=== PATIENT | female | born 1960 | race Caucasian/White ===

== ENCOUNTER 2017-12-24 19:07 | Observation (INO) | payer SELFPAY ==
[~2017-12-24 19:07] MED LIST: AMOX875T20 PO; Z.0.NO CURRENT MEDS
[2017-12-24 19:14] VITALS: BP 258/125; PULSE 99; RESP 18; TEMP 98.5; O2SAT 97
[2017-12-24 19:18] VITALS: BP 232/112; PULSE 100
[2017-12-24 19:30] VITALS: BP 226/118; PULSE 99; RESP 20; O2SAT 98
[2017-12-24] MEDS ORDERED: OXYMETAZOLINE HCL 0.05% 15 ML NASAL SPRAY NASAL ONE (19:45)
[2017-12-24] MEDS ORDERED: cloNIDine HCL 0.1 MG TAB PO ONE (19:45)
[2017-12-24 20:40] LABS: AUTOMATED NEUTROPHIL # 5.3 TH/MM3 (1.8-7.7); BASOPHIL % 0.6 % (0.0-2.0); EOSINOPHIL # 0.1 TH/MM3 (0-0.4); EOSINOPHIL % 0.9 % (0.0-4.0); HEMATOCRIT 40.5 % (35.0-46.0); LYMPH % 24.9 % (9.0-44.0); LYMPHOCYTE # 1.9 TH/MM3 (1.0-4.8); MEAN CELL VOLUME 101.2 FL (80.0-100.0); MEAN CORPUSCULAR HGB CONC 34.6 % (32.0-36.0); MEAN PLATELET VOLUME 8.4 FL (7.0-11.0); MONO % 4.7 % (0.0-8.0); MONOCYTE # 0.4 TH/MM3 (0-0.9); NEUT % 68.9 % (16.0-70.0); PLATELET COUNT 234 TH/MM3 (150-450); RED CELL DISTRIBUTION WIDTH 14.4 % (11.6-17.2); WHITE BLOOD COUNT 7.8 TH/MM3 (4.0-11.0)
[2017-12-24 20:50] LABS: BICARBONATE 25.1 MEQ/L (21.0-32.0); CALCIUM 9.5 MG/DL (8.5-10.1); CREATININE 1.6 MG/DL (0.50-1.00)
[2017-12-24 21:17] VITALS: BP 249/126; PULSE 86; RESP 18; O2SAT 98
[2017-12-24] MEDS ORDERED: hydrALAZINE HCL 20 MG/ML VIAL IV PUSH ONE (21:30)
--- NOTE | 2017-12-24 21:58 | PD ---
HPI Chief Complaint: Nosebleed Time Seen by Provider: 19:35 Travel History International Travel<30 days: No Contact w/Intl Traveler<30days: No Traveled to known affect area: No History of Present Illness HPI 57-year-old female that presents to the ED for evaluation of nosebleed to the right nostril. Per patient she has had 3 nosebleeds today. Per patient she has noted that her blood pressure is elevated as well. She denies any bleeding to the back of her nose. Per patient no swallowing of blood. Per patient she is able to put pressure on the bleeding stops. Bleeding does not last more than 20 minutes. No blood thinner use. No injury. Per patient has had nosebleeds before secondary to changes in climate and sinus infections. She states that she was not too concerned until she had 3 and she noticed that her blood pressure was elevated. She has any headache. She denies any abdominal pain or chest pain. No pain at all. She takes no medications for her blood pressure and was told in the urgent care that she had high blood pressure. She takes nothing for this. Her blood pressure is highly elevated here. PFSH Past Medical History Hypertension: Yes Influenza Vaccination: No Menopausal: Yes : 2 Para: 2 Social History Alcohol Use: Yes (OCCAS) Tobacco Use: Yes (1 PCK/DAY) Substance Use: No Allergies-Medications (Allergen,Severity, Reaction): Coded Allergies: No Known Allergies (Unverified Allergy, Unknown, 12/24/17) Reported Meds & Prescriptions Reported Meds & Active Scripts Active No Active Prescriptions or Reported Medications Review of Systems Except as stated in HPI: all other systems reviewed are Neg Physical Exam Narrative GENERAL: SKIN: Warm and dry. HEAD: Atraumatic. Normocephalic. EYES: Pupils equal and round. No scleral icterus. No injection or drainage. ENT: No nasal bleeding or discharge. Mucous membranes pink and moist. Tongue is midline. No uvula deviation. Nostrils are patent bilaterally. Some old blood noted on the right nostril. Nontender. No active bleeding at this time. NECK: Trachea midline. No JVD. CARDIOVASCULAR: Regular rate and rhythm. No murmurs, S3, S4. RESPIRATORY: No accessory muscle use. Clear to auscultation. Breath sounds equal bilaterally. GASTROINTESTINAL: Abdomen soft, non-tender, nondistended. Hepatic and splenic margins not palpable. MUSCULOSKELETAL: Extremities without clubbing, cyanosis, or edema. No obvious deformities. Full range of motion of the upper and lower extremities bilaterally. 2+ pulses bilaterally. NEUROLOGICAL: Awake and alert. No obvious cranial nerve deficits. Motor grossly within normal limits. Five out of 5 muscle strength in the arms and legs. Normal speech. PSYCHIATRIC: Appropriate mood and affect; insight and judgment normal. Data Data Last Documented VS Vital Signs Date Time Temp Pulse Resp B/P (MAP) Pulse Ox O2 Delivery O2 Flow Rate FiO2 12/24/17 22:22 74 18 204/100 (134) 97 Room Air 12/24/17 19:14 98.5 Orders Orders Oxymetazoline 0.05% Miko [place] (Afrin 0.0 (12/24/17 19:45) Clonidine (Catapres) (12/24/17 19:45) Complete Blood Count With Diff (12/24/17 19:44) Basic Metabolic Panel (Bmp) (12/24/17 19:44) Prothrombin Time / Inr (Pt) (12/24/17 19:44) Act Partial Throm Time (Ptt) (12/24/17 19:44) Hydralazine Inj (Apresoline Inj) (12/24/17 21:30) Labetalol Inj (Trandate Inj) (12/24/17 22:00) Electrocardiogram (12/24/17 ) Labs Laboratory Tests Test 12/24/17 20:00 White Blood Count 7.8 TH/MM3 Red Blood Count 4.00 MIL/MM3 Hemoglobin 14.0 GM/DL Hematocrit 40.5 % Mean Corpuscular Volume 101.2 FL Mean Corpuscular Hemoglobin 35.0 PG Mean Corpuscular Hemoglobin Concent 34.6 % Red Cell Distribution Width 14.4 % Platelet Count 234 TH/MM3 Mean Platelet Volume 8.4 FL Neutrophils (%) (Auto) 68.9 % Lymphocytes (%) (Auto) 24.9 % Monocytes (%) (Auto) 4.7 % Eosinophils (%) (Auto) 0.9 % Basophils (%) (Auto) 0.6 % Neutrophils # (Auto) 5.3 TH/MM3 Lymphocytes # (Auto) 1.9 TH/MM3 Monocytes # (Auto) 0.4 TH/MM3 Eosinophils # (Auto) 0.1 TH/MM3 Basophils # (Auto) 0.0 TH/MM3 CBC Comment DIFF FINAL Differential Comment Prothrombin Time 10.0 SEC Prothromb Time International Ratio 1.0 RATIO Activated Partial Thromboplast Time 26.4 SEC Blood Urea Nitrogen 18 MG/DL Creatinine 1.60 MG/DL Random Glucose 144 MG/DL Calcium Level 9.5 MG/DL Sodium Level 143 MEQ/L Potassium Level 3.2 MEQ/L Chloride Level 106 MEQ/L Carbon Dioxide Level 25.1 MEQ/L Anion Gap 12 MEQ/L Estimat Glomerular Filtration Rate 33 ML/MIN MDM Medical Decision Making Medical Screen Exam Complete: Yes Emergency Medical Condition: Yes Medical Record Reviewed: Yes Interpretation(s) CBC & BMP Diagram 12/24/17 20:00 Calcium Level 9.5 Differential Diagnosis Hypertensive urgency versus hypertension versus hypertensive emergency versus nosebleed versus anterior epistaxis Narrative Course 57-year-old female that presents to the ED for evaluation of nosebleed as well as hypertension. Patient was properly examined and was found to have signs and symptoms consistent with hypertension and nosebleed. Nosebleed completely controlled here. No sign of active bleeding at this time. I do recommend Afrin and blood pressure medication as well as some blood work as her blood pressure in the 200s systolic. She was given clonidine with minimal results. Her blood pressure actually went up to the 250s. She did had one more nosebleed that lasted a couple of minutes and then it went away. At this time I recommend IV medications to see we can bring down the blood pressure which likely will continue to cause the nosebleeds. Patient agrees with this. Case was discussed my attending Dr. Kwong who was made aware of blood pressure and agrees with plan. Case signed out to my attending pending dispo and plan. Scripts No Active Prescriptions or Reported Meds Shaheen Calixto Dec 24, 2017 21:58
[2017-12-24] MEDS ORDERED: LABETALOL HCL 100 MG/20 ML VIAL IV PUSH ONE (22:00)
[2017-12-24 22:22] VITALS: BP 204/100; PULSE 74; RESP 18; O2SAT 97
[2017-12-25] VITALS (12 sets, daily range): BP systolic 163–210; BP diastolic 77–98; PULSE 66–78; RESP 16–20; TEMP 97.8–98.6; O2SAT 71–99
--- NOTE | 2017-12-25 00:26 | PD ---
Physical Exam Date Seen by Provider: Dec 25, 2017 Time Seen by Provider: 00:22 Narrative GENERAL: Well-developed well-nourished female no acute distress or respiratory distress SKIN: Warm and dry. HEAD: Normocephalic. EYES: No scleral icterus. No injection or drainage. ENT: No active epistaxis. NECK: Supple, trachea midline. No JVD or lymphadenopathy. CARDIOVASCULAR: Regular rate and rhythm without murmurs, gallops, or rubs. RESPIRATORY: Breath sounds equal bilaterally. No accessory muscle use. GASTROINTESTINAL: Abdomen soft, non-tender, nondistended. MUSCULOSKELETAL: No cyanosis, or edema. Data Data Last Documented VS Vital Signs Date Time Temp Pulse Resp B/P (MAP) Pulse Ox O2 Delivery O2 Flow Rate FiO2 12/25/17 00:10 78 16 198/92 (127) 96 Room Air 12/24/17 19:14 98.5 Orders Orders Oxymetazoline 0.05% Miko [place] (Afrin 0.0 (12/24/17 19:45) Clonidine (Catapres) (12/24/17 19:45) Complete Blood Count With Diff (12/24/17 19:44) Basic Metabolic Panel (Bmp) (12/24/17 19:44) Prothrombin Time / Inr (Pt) (12/24/17 19:44) Act Partial Throm Time (Ptt) (12/24/17 19:44) Hydralazine Inj (Apresoline Inj) (12/24/17 21:30) Labetalol Inj (Trandate Inj) (12/24/17 22:00) Electrocardiogram (12/24/17 ) Labs Laboratory Tests Test 12/24/17 20:00 White Blood Count 7.8 TH/MM3 Red Blood Count 4.00 MIL/MM3 Hemoglobin 14.0 GM/DL Hematocrit 40.5 % Mean Corpuscular Volume 101.2 FL Mean Corpuscular Hemoglobin 35.0 PG Mean Corpuscular Hemoglobin Concent 34.6 % Red Cell Distribution Width 14.4 % Platelet Count 234 TH/MM3 Mean Platelet Volume 8.4 FL Neutrophils (%) (Auto) 68.9 % Lymphocytes (%) (Auto) 24.9 % Monocytes (%) (Auto) 4.7 % Eosinophils (%) (Auto) 0.9 % Basophils (%) (Auto) 0.6 % Neutrophils # (Auto) 5.3 TH/MM3 Lymphocytes # (Auto) 1.9 TH/MM3 Monocytes # (Auto) 0.4 TH/MM3 Eosinophils # (Auto) 0.1 TH/MM3 Basophils # (Auto) 0.0 TH/MM3 CBC Comment DIFF FINAL Differential Comment Prothrombin Time 10.0 SEC Prothromb Time International Ratio 1.0 RATIO Activated Partial Thromboplast Time 26.4 SEC Blood Urea Nitrogen 18 MG/DL Creatinine 1.60 MG/DL Random Glucose 144 MG/DL Calcium Level 9.5 MG/DL Sodium Level 143 MEQ/L Potassium Level 3.2 MEQ/L Chloride Level 106 MEQ/L Carbon Dioxide Level 25.1 MEQ/L Anion Gap 12 MEQ/L Estimat Glomerular Filtration Rate 33 ML/MIN [facility] Medical Record Reviewed: Yes Supervised Visit with FRITZ: Yes Interpretation(s) EKG normal sinus rhythm rate [address] elevation nonspecific QRS septally V1 V2 CBC & BMP Diagram 12/24/17 20:00 Calcium Level 9.5 Vital Signs Date Time Temp Pulse Resp B/P (MAP) Pulse Ox O2 Delivery O2 Flow Rate FiO2 12/25/17 00:10 78 16 198/92 (127) 96 Room Air 12/24/17 22:22 74 18 204/100 (134) 97 Room Air 12/24/17 21:17 86 18 249/126 (167) 98 Room Air 12/24/17 19:30 99 20 226/118 (154) 98 Room Air 12/24/17 19:18 100 232/112 (152) 12/24/17 19:14 98.5 99 18 258/125 (169) 97 Differential Diagnosis Epistaxis, hypertensive urgency hypertensive crisis Narrative Course Patient was presentation for epistaxis that has resolved with direct pressure noted to have markedly elevated blood pressure diagnosed with blood pressure elevation approximately 2 months ago at urgent care visit for sinus infection. Patient was not started on antihypertensive medication at that time. Patient administered here clonidine 0.1 mg was minimal effective blood pressure hydralazine 20 mg IV with minimal effective blood pressure and labetalol 5 mg IV Lab values are found to be in normal range EKG normal sinus rhythm rate [address] elevation nonspecific T-wave changes septally QS septally age indeterminate; no comparison EKG Diagnosis Primary Impression: Hypertensive urgency Additional Impression: Epistaxis Scripts No Active Prescriptions or Reported Meds Anna Kwong MD Dec 25, 2017 00:26
[2017-12-25] MEDS ORDERED: LABETALOL HCL 100 MG/20 ML VIAL IV PUSH ONE ×2 (00:30→01:30)
[2017-12-25] MEDS ORDERED: NITROGLYCERIN 2% OINT 1 GM PACKET TOPICAL ONE (00:30)
[2017-12-25] MEDS ORDERED: BISACODYL 10 MG SUPP RECTAL PRN (03:30)
[2017-12-25] MEDS ORDERED: ACETAMINOPHEN 325 MG TAB PO PRN (03:30)
[2017-12-25] MEDS ORDERED: NIFEdipine 30 MG SUSTAINED RELEASE TAB PO ONE ×2 (03:30→16:15)
[2017-12-25] MEDS ORDERED: SENNOSIDES 8.6 MG TAB PO PRN (03:30)
[2017-12-25] MEDS ORDERED: SODIUM CHLORIDE 0.9% FLUSH 10 ML FLUSH IV FLUSH PRN (03:30)
[2017-12-25] MEDS ORDERED: MORPHINE SULFATE 4 MG/ML INJ IV PRN (03:30)
[2017-12-25] MEDS ORDERED: ACETAMINOPHEN/HYDROcodone 325 MG/5 MG TAB PO PRN (03:30)
[2017-12-25] MEDS ORDERED: LACTULOSE SYRUP 20 GM/30 ML CUP PO PRN (03:30)
[2017-12-25] MEDS ORDERED: MAGNESIUM HYDROXIDE SUSP 30 ML CUP PO PRN (03:30)
[2017-12-25] MEDS ORDERED: METOPROLOL TARTRATE 50 MG TAB PO ONE (03:30)
[2017-12-25] MEDS ORDERED: METOCLOPRAMIDE HCL 10 MG/2 ML VIAL IV PUSH PRN (03:30)
--- NOTE | 2017-12-25 03:55 | HHI.HP ---
[facility] Primary Care Physician No Primary Care Physician Admission Diagnosis uncontrolled HTN; epistaxis Diagnoses: (1) Epistaxis Diagnosis: Principal (2) Uncontrolled hypertension Diagnosis: Principal (3) Renal insufficiency Diagnosis: Principal (4) Hyperglycemia Diagnosis: Principal Travel History International Travel<30 Days: No Contact w/Intl Traveler <30 Da: No Traveled to Known Affected Are: No History of Present Illness This is a 57-year-old female with a PMH of HTN who presented to ER with complaints of epistaxis and elevated blood pressure. Per patient she was told several years ago at an Urgent Care that she had high blood pressure but was not started on any medication at that time. Today, states she drove her scooter to the gas station and had acute onset of epistaxis from right nostril. No headache, dizziness, chest pain or nausea/vomiting. Not on ASA or anticoagulation. On arrival, BP 258/125, HR 99, O2 sat 97% on RA, Afebrile. CBC essentially unremarkable. Creatinine 1.60, no previous labs for comparison. BS 144. INR 1.0. S/p multiple doses of antihypertensive medications in the ER w/ some improvement, however BP remains 170-180's systolic. Epistaxis has resolved. Review of Systems Except as stated in HPI: all other systems reviewed are Neg ROS: 14 point review of systems otherwise negative. Past Family Social History Past Medical History PMH: HTN Past Surgical History PAST SURGICAL HISTORY: Left Wrist Surgery Allergies: Coded Allergies: No Known Allergies (Unverified Allergy, Unknown, 12/24/17) Family History PAST FAMILY HISTORY: Reviewed. No h/o DM or CAD Social History PAST SOCIAL HISTORY: Occasional alcohol. Smokes 1ppd. Negative for drugs. Physical Exam Vital Signs Vital Signs Date Time Temp Pulse Resp B/P (MAP) Pulse Ox O2 Delivery O2 Flow Rate FiO2 12/25/17 03:13 68 18 167/79 (108) 96 Room Air 12/25/17 03:01 71 18 170/81 (110) 97 Room Air 12/25/17 02:16 72 18 185/77 (113) 96 Room Air 12/25/17 01:21 70 18 210/95 (133) 96 Room Air 12/25/17 00:10 78 16 198/92 (127) 96 Room Air 12/24/17 22:22 74 18 204/100 (134) 97 Room Air 12/24/17 21:17 86 18 249/126 (167) 98 Room Air 12/24/17 19:30 99 20 226/118 (154) 98 Room Air 12/24/17 19:18 100 232/112 (152) 12/24/17 19:14 98.5 99 18 258/125 (169) 97 Physical Exam PE: GENERAL: Very pleasant middle-aged white female in no acute distress. HEENT: PERRLA, EOMI. No scleral icterus or conjunctival pallor. No lid lag or facial droop. Epistaxis resolved. CARDIOVASCULAR: Regular rate and rhythm. No obvious murmurs to auscultation. No chest tenderness to palpation. RESPIRATORY: No obvious rhonchi or wheezing. Clear to auscultation. Breath sounds equal bilaterally. GASTROINTESTINAL: Abdomen soft, non-tender, nondistended. BS normal. MUSCULOSKELETAL: Extremities without clubbing, cyanosis, or edema. No obvious deformities. NEUROLOGICAL: Awake, alert and oriented x4. No focal neurologic deficits. Moving both upper and lower extremities spontaneously. Laboratory Laboratory Tests Test 12/24/17 20:00 White Blood Count 7.8 Red Blood Count 4.00 Hemoglobin 14.0 Hematocrit 40.5 Mean Corpuscular Volume 101.2 Mean Corpuscular Hemoglobin 35.0 Mean Corpuscular Hemoglobin Concent 34.6 Red Cell Distribution Width 14.4 Platelet Count 234 Mean Platelet Volume 8.4 Neutrophils (%) (Auto) 68.9 Lymphocytes (%) (Auto) 24.9 Monocytes (%) (Auto) 4.7 Eosinophils (%) (Auto) 0.9 Basophils (%) (Auto) 0.6 Neutrophils # (Auto) 5.3 Lymphocytes # (Auto) 1.9 Monocytes # (Auto) 0.4 Eosinophils # (Auto) 0.1 Basophils # (Auto) 0.0 CBC Comment DIFF FINAL Differential Comment Prothrombin Time 10.0 Prothromb Time International Ratio 1.0 Activated Partial Thromboplast Time 26.4 Blood Urea Nitrogen 18 Creatinine 1.60 Random Glucose 144 Calcium Level 9.5 Sodium Level 143 Potassium Level 3.2 Chloride Level 106 Carbon Dioxide Level 25.1 Anion Gap 12 Estimat Glomerular Filtration Rate 33 Result Diagram: 12/24/17199912/24/171999 Caprini VTE Risk Assessment Onelrini VTE Risk Assessment: No/Low Risk (score <= 1) VTE Pharm Contraindication: Active bleeding Onelringordon Risk Assessment Model Point Value = 1 Point Value = 2 Point Value = 3 Point Value = 5 Age 41-60 Minor surgery BMI > 25 kg/m2 Swollen legs Varicose veins or History of unexplained or recurrent spontaneous Oral contraceptives or hormone replacement Sepsis (< 1 month) Serious lung disease, including pneumonia (< 1 month) Abnormal pulmonary function Acute myocardial infarction Congestive heart failure (< 1 month) History of inflammatory bowel disease Medical patient at bed rest Age 61-74 Arthroscopic surgery Major open surgery (> 45 min) Laparoscopic surgery (> 45 min) Malignancy Confined to bed (> 72 hours) Immobilizing plaster cast Central venous access Age >= 75 History of VTE Family history of VTE Factor V Leiden Prothrombin [id number] Lupus anticoagulant Anticardiolipin antibodies Elevated serum homocysteine Heparin-induced thrombocytopenia Other congenital or acquired thrombophilia Stroke (< 1 month) Elective arthroplasty Hip, pelvis, or leg fracture Acute spinal cord injury (< 1 month) Prophylaxis Regimen Total Risk Factor Score Risk Level Prophylaxis Regimen 0-1 Low Early ambulation 2 Moderate Order ONE of the following: *Sequential Compression Device (SCD) *Heparin 5000 units SQ BID 3-4 Higher Order ONE of the following medications: *Heparin 5000 units SQ TID *Enoxaparin/Lovenox 40 mg SQ daily (WT < 150 kg, CrCl > 30 mL/min) *Enoxaparin/Lovenox 30 mg SQ daily (WT < 150 kg, CrCl > 10-29 mL/min) *Enoxaparin/Lovenox 30 mg SQ BID (WT < 150 kg, CrCl > 30 mL/min) AND/OR *Sequential Compression Device (SCD) 5 or more Highest Order ONE of the following medications: *Heparin 5000 units SQ TID (Preferred with Epidurals) *Enoxaparin/Lovenox 40 mg SQ daily (WT < 150 kg, CrCl > 30 mL/min) *Enoxaparin/Lovenox 30 mg SQ daily (WT < 150 kg, CrCl > 10-29 mL/min) *Enoxaparin/Lovenox 30 mg SQ BID (WT < 150 kg, CrCl > 30 mL/min) AND *Sequential Compression Device (SCD) Assessment and Plan Problem List: (1) Epistaxis ICD Code: R04.0 - Epistaxis Status: Acute (2) Uncontrolled hypertension ICD Code: I10 - Essential (primary) hypertension (3) Hyperglycemia ICD Code: R73.9 - Hyperglycemia, unspecified (4) Renal insufficiency ICD Code: N28.9 - Disorder of kidney and ureter, unspecified Assessment and Plan A/P: 1. Epistaxis: likely secondary to significantly elevated BP on arrival, s/p Afrin in ER, epistaxis now resolved. Repeat Hgb/Hct. 2. HTN: Uncontrolled. Not on antihypertensive medications. BP 258/125, HR 99 on arrival, s/p Clonidine 0.1mg, Hydralazine 20mg IV and Labetalol x3 w/ improvement, BP now 170-180's, will start on antihypertensives, monitor BP. 3. Renal Insufficiency: Creatinine 1.60, no previous labs for comparison, likely due to long-standing uncontrolled HTN, check U/a to eval for UTI, repeat labs in am. 4. Hyperglycemia: BS 144, no previous h/o DM, check Hgb A1c, sliding scale as needed. 5. DVT Prophylaxis: SCD/Teds 6. Social work for d/c planning as needed. 7. Case discussed w/ ER physician at length, labs/records/imaging reviewed by me. Helen Nix MD Dec 25, 2017 03:55
[2017-12-25] MEDS: cloNIDine HCL 0.1 MG TAB PO PRN ×2 (06:24→20:46)
[2017-12-25 06:46] LABS: AUTOMATED NEUTROPHIL # 4.8 TH/MM3 (1.8-7.7); BASOPHIL % 0.3 % (0.0-2.0); EOSINOPHIL % 0.7 % (0.0-4.0); HEMATOCRIT 35.7 % (35.0-46.0); HEMOGLOBIN 12.2 GM/DL (11.6-15.3); LYMPH % 27.6 % (9.0-44.0); MEAN CELL VOLUME 102.1 FL (80.0-100.0); MEAN CORPUSCULAR HEMOGLOBIN 34.9 PG (27.0-34.0); MEAN CORPUSCULAR HGB CONC 34.2 % (32.0-36.0); MEAN PLATELET VOLUME 8.1 FL (7.0-11.0); MONO % 5.3 % (0.0-8.0); MONOCYTE # 0.4 TH/MM3 (0-0.9); NEUT % 66.1 % (16.0-70.0); PLATELET COUNT 202 TH/MM3 (150-450); RED CELL DISTRIBUTION WIDTH 14.2 % (11.6-17.2); WHITE BLOOD COUNT 7.3 TH/MM3 (4.0-11.0)
[2017-12-25 07:13] LABS: ALBUMIN 3.4 GM/DL (3.4-5.0); AST (GOT) 16 U/L (15-37); BICARBONATE 27.3 MEQ/L (21.0-32.0); BLOOD UREA NITROGEN 18 MG/DL (7-18); CALCIUM 8.9 MG/DL (8.5-10.1); CHLORIDE 104 MEQ/L (98-107); CREATININE 1.32 MG/DL (0.50-1.00); GLOMERULAR FILTRATION RATE 41 ML/MIN (>89); GLUCOSE,RANDOM 90 MG/DL (74-106); SODIUM (NA) 141 MEQ/L (136-145)
[2017-12-25 07:15] LABS: ALKALINE PHOSPHATASE 76 U/L (45-117); ALT (GPT) 21 U/L (10-53); TOTAL BILIRUBIN ADULT 0.4 MG/DL (0.2-1.0); TOTAL PROTEIN 6.8 GM/DL (6.4-8.2)
[2017-12-25] MEDS: DOCUSATE SODIUM 50 MG/SENNA 8.6 MG TAB PO SCH ×2 (09:00→20:47)
[2017-12-25] MEDS ORDERED: NIFEdipine 60 MG SUSTAINED RELEASE TAB PO SCH (09:00)
[2017-12-25] MEDS: SODIUM CHLORIDE 0.9% FLUSH 10 ML FLUSH IV FLUSH SCH ×2 (09:21→20:45)
--- NOTE | 2017-12-25 09:54 | HHI.PR ---
Subjective Remarks Follow-up for epistaxis, hypertensive urgency. Patient reports feeling better today. She denies any further epistaxis since yesterday. She denies any headache, lightheadedness, dizziness, chest pain, palpitations, shortness of breath. Blood pressure improving, however still systolic in the 160s. She has no other medical complaints at this time. Objective Vitals Vital Signs Date Time Temp Pulse Resp B/P (MAP) Pulse Ox O2 Delivery O2 Flow Rate FiO2 12/25/17 08:17 98.2 66 20 163/83 (109) 96 12/25/17 05:15 98.1 66 18 191/98 (129) 99 12/25/17 04:36 12/25/17 03:13 68 18 167/79 (108) 96 Room Air 12/25/17 03:01 71 18 170/81 (110) 97 Room Air 12/25/17 02:16 72 18 185/77 (113) 96 Room Air 12/25/17 01:21 70 18 210/95 (133) 96 Room Air 12/25/17 00:10 78 16 198/92 (127) 96 Room Air 12/24/17 22:22 74 18 204/100 (134) 97 Room Air 12/24/17 21:17 86 18 249/126 (167) 98 Room Air 12/24/17 19:30 99 20 226/118 (154) 98 Room Air 12/24/17 19:18 100 232/112 (152) 12/24/17 19:14 98.5 99 18 258/125 (169) 97 Result Diagram: 12/25/17 0550 12/25/17 0550 Objective Remarks GENERAL: Well-nourished, well-developed pleasant overweight middle-aged female patient in [facility]. SKIN: Warm and dry. No rash. HEENT: Normocephalic. Atraumatic. Pupils equal and round. Mucous membranes pink and moist. CARDIOVASCULAR: Regular rate and rhythm. No murmur appreciated. RESPIRATORY: No accessory muscle use. Clear to auscultation. Breath sounds equal bilaterally. GASTROINTESTINAL: Abdomen soft, non-tender, nondistended. Normoactive bowel sounds x4. MUSCULOSKELETAL: No obvious deformities. Extremities without clubbing, cyanosis , or edema. NEUROLOGICAL: Awake and alert. No obvious cranial nerve deficits. Motor grossly within normal limits. Moving all extremities spontaneously. Normal speech. PSYCHIATRIC: Appropriate mood and affect; insight and judgment normal. Medications and IVs Current Medications Medications (Trade) Dose Ordered Sig/Ya Route Start Time Stop Time Status Last Admin (NS Flush) 2 ml UNSCH PRN IV FLUSH 12/25/17 03:30 (NS Flush) 2 ml BID IV FLUSH 12/25/17 09:00 12/25/17 09:21 (Reglan Inj) 5 mg Q6H PRN IV PUSH 12/25/17 03:30 (Tylenol) 650 mg Q6H PRN PO 12/25/17 03:30 (Hardy 5-325 Mg) 1 tab Q4H PRN PO 12/25/17 03:30 (Morphine Inj) 2 mg Q3H PRN IV 12/25/17 03:30 (Priti-Colace) 1 tab BID PO 12/25/17 09:00 (Milk Of Magnesia Liq) 30 ml Q12H PRN PO 12/25/17 03:30 (Senokot) 17.2 mg Q12H PRN PO 12/25/17 03:30 (Dulcolax Supp) 10 mg DAILY PRN RECTAL 12/25/17 03:30 (Lactulose Liq) 30 ml DAILY PRN PO 12/25/17 03:30 (Catapres) 0.1 mg Q6H PRN PO 12/25/17 06:15 12/25/17 06:24 (Procardia Xl) 60 mg DAILY PO 12/25/17 09:00 12/25/17 09:21 A/P Problem List: (1) Epistaxis ICD Code: R04.0 - Epistaxis Status: Acute (2) Uncontrolled hypertension ICD Code: I10 - Essential (primary) hypertension (3) Hyperglycemia ICD Code: R73.9 - Hyperglycemia, unspecified (4) Renal insufficiency ICD Code: N28.9 - Disorder of kidney and ureter, unspecified Assessment and Plan 57-year-old female with past medical history of hypertension not on antihypertensives, presents with epistaxis and hypertensive urgency, BP 258/125 in the ED. Hypertensive urgency: BP 258/125 in the ER. Status post multiple doses of antihypertensives including clonidine, IV labetalol, nitroglycerin, metoprolol, nifedipine, with mild improvement. -Start on Procardia XL 60 mg daily -Continue clonidine as needed -Monitor BP, adjust antihypertensives as needed -Case management consulted to assist with obtaining medications prior to discharge Epistaxis: Secondary to above. -Status post Afrin in the ED with resolution of epistaxis -Controlled BP as above -Currently resolved LUIS ALBERTO: Creatinine 1.6, no previous labs for comparison, likely prerenal secondary to dehydration versus hypertensive nephropathy -Encouraged oral fluid hydration -Avoid nephrotoxins -Repeat BMP with some improvement, creatinine 1.3 -Continue to monitor renal function Hyperglycemia: Glucose 144 upon arrival -hemoglobin A1c 5.6, no diabetes DVT prophylaxis: Teds/SCDs, avoid chemoprophylaxis with epistaxis as above Discharge Planning Discharge pending improvement of blood pressure. Likely discharge tomorrow 12/26. Oriana Rodriguez PA-C Dec 25, 2017 9:54 am
[2017-12-25 10:22] LABS: HEMOGLOBIN A1C 5.6 % (4.3-6.0)
--- NOTE | 2017-12-25 12:35 | HHI.DCPOC ---
Discharge Care Plan Diagnosis: (1) Uncontrolled hypertension Goals to Promote Your Health * To prevent worsening of your condition and complications * To maintain your health at the optimal level Directions to Meet Your Goals Take your medications as prescribed Follow your dietary instruction Follow activity as directed Keep your appointments as scheduled Take your immunizations and boosters as scheduled If your symptoms worsen call your PCP, if no PCP go to Urgent Care Center or Emergency Room Smoking is Dangerous to Your Health. Avoid second hand smoke Call the 24-hour hour crisis hotline for domestic abuse at Oriana Rodriguez PA-C Dec 25, 2017 12:35 pm
--- NOTE | 2017-12-25 15:57 | EKG ---
Date Performed: 12/25/2017 Time Performed: 00:16:24 PTAGE: 57 years EKG: Sinus rhythm NONSPECIFIC T-WAVE ABNORMALITY BORDERLINE ECG NO PREVIOUS TRACING DOCTOR: Camilo Johnson Interpretating Date/Time 12/25/2017 15:55:27
[2017-12-26] VITALS (19 sets, daily range): BP systolic 162–216; BP diastolic 77–99; PULSE 61–84; RESP 14–20; TEMP 97.1–98.4; O2SAT 94–97
[2017-12-26] MEDS ORDERED: hydrALAZINE HCL 50 MG TAB PO ONE (01:45)
[2017-12-26] MEDS: cloNIDine HCL 0.1 MG TAB PO PRN (03:59)
[2017-12-26] MEDS ORDERED: LABETALOL HCL 100 MG/20 ML VIAL IV PUSH ONE (06:00)
--- NOTE | 2017-12-26 08:39 | HHI.PR ---
Subjective Remarks Follow-up for epistaxis, hypertensive urgency. Patient's blood pressure increased overnight to 216/99, status post p.o. hydralazine and IV labetalol, improved to 170s/80s. Patient admits that she has been feeling anxious and stressed out due to events going on at home. She otherwise denies any medical complaints including no headache, visual changes, lightheadedness, dizziness, chest pain, palpitations, shortness of breath. Objective Vitals Vital Signs Date Time Temp Pulse Resp B/P (MAP) Pulse Ox O2 Delivery O2 Flow Rate FiO2 12/26/17 07:06 97.6 67 20 179/85 (116) 95 12/26/17 06:24 65 16 185/88 (120) 94 12/26/17 03:52 97.7 73 16 216/99 (138) 97 12/26/17 03:50 84 12/26/17 00:24 98.0 61 14 215/95 (135) 97 12/26/17 00:00 62 12/25/17 20:00 69 12/25/17 19:45 97.8 71 17 208/92 (130) 97 12/25/17 15:00 72 12/25/17 14:57 98.6 70 20 169/82 (111) 98 Result Diagram: 12/25/17 0550 12/25/17 0550 Objective Remarks GENERAL: Well-nourished, well-developed pleasant overweight middle-aged female patient in [facility]. SKIN: Warm and dry. No rash. HEENT: Normocephalic. Atraumatic. Pupils equal and round. Mucous membranes pink and moist. CARDIOVASCULAR: Regular rate and rhythm. No murmur appreciated. RESPIRATORY: No accessory muscle use. Clear to auscultation. Breath sounds equal bilaterally. GASTROINTESTINAL: Abdomen soft, non-tender, nondistended. Normoactive bowel sounds x4. MUSCULOSKELETAL: No obvious deformities. Extremities without clubbing, cyanosis , or edema. NEUROLOGICAL: Awake and alert. No obvious cranial nerve deficits. Motor grossly within normal limits. Moving all extremities spontaneously. Normal speech. PSYCHIATRIC: Appropriate mood and affect; insight and judgment normal. Medications and IVs Current Medications Medications (Trade) Dose Ordered Sig/Ya Route Start Time Stop Time Status Last Admin (NS Flush) 2 ml UNSCH PRN IV FLUSH 12/25/17 03:30 (NS Flush) 2 ml BID IV FLUSH 12/25/17 09:00 12/25/17 20:45 (Reglan Inj) 5 mg Q6H PRN IV PUSH 12/25/17 03:30 (Tylenol) 650 mg Q6H PRN PO 12/25/17 03:30 ([place] 5-325 Mg) 1 tab Q4H PRN PO 12/25/17 03:30 (Morphine Inj) 2 mg Q3H PRN IV 12/25/17 03:30 (Priti-Colace) 1 tab BID PO 12/25/17 09:00 (Milk Of Magnesia Liq) 30 ml Q12H PRN PO 12/25/17 03:30 (Senokot) 17.2 mg Q12H PRN PO 12/25/17 03:30 (Dulcolax Supp) 10 mg DAILY PRN RECTAL 12/25/17 03:30 (Lactulose Liq) 30 ml DAILY PRN PO 12/25/17 03:30 (Catapres) 0.1 mg Q6H PRN PO 12/25/17 06:15 12/26/17 03:59 (Procardia Xl) 90 mg DAILY PO 12/26/17 09:00 A/P Problem List: (1) Epistaxis ICD Code: R04.0 - Epistaxis Status: Acute (2) Uncontrolled hypertension ICD Code: I10 - Essential (primary) hypertension (3) Hyperglycemia ICD Code: R73.9 - Hyperglycemia, unspecified (4) Renal insufficiency ICD Code: N28.9 - Disorder of kidney and ureter, unspecified Assessment and Plan 57-year-old female with past medical history of hypertension not on antihypertensives, presents with epistaxis and hypertensive urgency, BP 258/125 in the ED. Hypertensive urgency: BP 258/125 in the ER. Status post multiple doses of antihypertensives including clonidine, IV labetalol, nitroglycerin, metoprolol, nifedipine, with mild improvement. -Start on Procardia XL 90 mg daily -Continue clonidine as needed -Monitor BP, adjust antihypertensives as needed -Patient likely needs dual therapy, however difficulty initiating SHANNAN/ARB/ HCTZ with renal function, and difficulty initiating beta-khris due to borderline bradycardia -Await BMP today, if renal function improves, plan to start SHANNAN -Case management consulted to assist with obtaining medications prior to discharge Epistaxis: Secondary to above. -Status post Afrin in the ED with resolution of epistaxis -Controlled BP as above -Currently resolved LUIS ALBERTO: Creatinine 1.6, no previous labs for comparison, likely prerenal secondary to dehydration versus hypertensive nephropathy -Encouraged oral fluid hydration -Avoid nephrotoxins -Repeat BMP with some improvement, creatinine 1.3 -Continue to monitor renal function Hyperglycemia: Glucose 144 upon arrival -hemoglobin A1c 5.6, no diabetes DVT prophylaxis: Teds/SCDs, avoid chemoprophylaxis with epistaxis as above Discharge Planning Discharge pending repeat labs and improvement of blood pressure. Case management consulted to assist with obtaining prescriptions prior to discharge. Oriana Rodriguez PA-C Dec 26, 2017 8:39 am
[2017-12-26] MEDS: DOCUSATE SODIUM 50 MG/SENNA 8.6 MG TAB PO SCH ×2 (09:00→20:21)
[2017-12-26] MEDS: SODIUM CHLORIDE 0.9% FLUSH 10 ML FLUSH IV FLUSH SCH ×2 (09:00→20:21)
[2017-12-26] MEDS: NIFEdipine 90 MG SUSTAINED RELEASE TAB PO SCH (09:28)
[2017-12-26 11:29] LABS: BICARBONATE 24.5 MEQ/L (21.0-32.0); CALCIUM 9.6 MG/DL (8.5-10.1); CREATININE 1.06 MG/DL (0.50-1.00)
[2017-12-26] MEDS ORDERED: LISINOPRIL 10 MG TAB PO ONE (13:30)
[2017-12-26] MEDS: LISINOPRIL 10 MG TAB PO SCH (20:21)
[2017-12-27] VITALS (12 sets, daily range): BP systolic 161–201; BP diastolic 74–109; PULSE 62–78; RESP 16–18; TEMP 97.9–98.9; O2SAT 93–98
[2017-12-27] MEDS: LISINOPRIL 10 MG TAB PO SCH ×2 (08:23→21:06)
[2017-12-27] MEDS: NIFEdipine 90 MG SUSTAINED RELEASE TAB PO SCH (08:24)
[2017-12-27 08:49] LABS: BICARBONATE 27.3 MEQ/L (21.0-32.0); CALCIUM 9.5 MG/DL (8.5-10.1); CREATININE 1.16 MG/DL (0.50-1.00)
[2017-12-27] MEDS: SODIUM CHLORIDE 0.9% FLUSH 10 ML FLUSH IV FLUSH SCH ×2 (09:00→21:05)
[2017-12-27] MEDS: DOCUSATE SODIUM 50 MG/SENNA 8.6 MG TAB PO SCH ×2 (09:00→21:00)
[2017-12-27] MEDS: cloNIDine HCL 0.1 MG TAB PO PRN ×2 (12:30→18:41)
--- NOTE | 2017-12-27 16:33 | HHI.PR ---
Subjective Remarks Follow-up hypertension. Patient denies headache, vision changes, chest pain, dyspnea. No further episodes of epistaxis reported. Per nursing, blood pressure has remained in the 200s systolic this afternoon. A larger blood pressure cuff was obtained and most recent check had systolic of 164. Objective Vitals Vital Signs Date Time Temp Pulse Resp B/P (MAP) Pulse Ox O2 Delivery O2 Flow Rate FiO2 12/27/17 15:00 162/74 (103) 12/27/17 12:33 78 12/27/17 12:02 98.9 73 18 183/84 (117) 93 12/27/17 07:52 97.9 64 18 179/85 (116) 95 12/27/17 03:28 97.9 65 16 161/76 (104) 94 12/27/17 00:00 66 12/26/17 23:24 97.9 68 16 169/77 (107) 94 12/26/17 20:29 97.9 68 16 195/93 (127) 96 12/26/17 20:00 66 12/26/17 19:20 162/81 (108) 12/26/17 18:15 65 181/82 (115) 95 12/26/17 17:03 67 18 182/90 (120) 97 I/O 12/26/17 12/26/17 12/26/17 12/27/17 12/27/17 12/27/17 07:00 15:00 23:00 07:00 15:00 23:00 Intake Total 720 ml 1000 ml Balance 720 ml 1000 ml Intake Oral 720 ml 1000 ml # Voids 3 2 8 # Bowel Movements 0 Result Diagram: 12/25/17 0550 12/27/17 0815 Objective Remarks General: Obese female in no acute distress. Heart: Regular rate and rhythm. No murmur. Lungs: Clear to auscultation bilaterally. No wheezes, rales, or rhonchi. Breathing is nonlabored. Abdomen: Soft, nontender, nondistended. Extremities: No lower extremity edema. Psych: Alert and oriented. Neuro: Normal speech. No focal deficits noted. Procedures None Urinary Catheter: No Vascular Central Line Catheter: No A/P Problem List: (1) Epistaxis ICD Code: R04.0 - Epistaxis Status: Acute (2) Uncontrolled hypertension ICD Code: I10 - Essential (primary) hypertension (3) Hyperglycemia ICD Code: R73.9 - Hyperglycemia, unspecified (4) Renal insufficiency ICD Code: N28.9 - Disorder of kidney and ureter, unspecified Assessment and Plan 1. Hypertensive urgency: Patient had only mild improvement in her blood pressure with clonidine, IV labetalol, nitroglycerin, metoprolol, and nifedipine in the ER. Continue Procardia XL 90 mg daily, lisinopril 10 mg twice daily. Continue clonidine as needed. 2. Epistaxis: Secondary to above. Status post Afrin in the ER with resolution of epistaxis. No further episodes. 3. Acute kidney injury: Creatinine has improved. Encourage oral fluid hydration. Monitor labs. Likely prerenal secondary to dehydration versus secondary to hypertensive nephropathy. 4. Hyperglycemia: Hemoglobin A1c 5.6. 5. DVT prophylaxis: HAO Narayanan. Avoid chemical prophylaxis secondary to epistaxis. Discharge Planning Discharge home soon pending improved blood pressure control. Gino Castro MD Dec 27, 2017 16:33
[2017-12-28] VITALS (12 sets, daily range): BP systolic 166–206; BP diastolic 74–93; PULSE 61–82; RESP 16–18; TEMP 97.9–98.9; O2SAT 93–99
[2017-12-28] MEDS: cloNIDine HCL 0.1 MG TAB PO PRN (05:11)
[2017-12-28 05:59] LABS: AUTOMATED NEUTROPHIL # 7.4 TH/MM3 (1.8-7.7); BASOPHIL % 0.2 % (0.0-2.0); EOSINOPHIL # 0.1 TH/MM3 (0-0.4); EOSINOPHIL % 0.8 % (0.0-4.0); HEMATOCRIT 37.2 % (35.0-46.0); HEMOGLOBIN 12.6 GM/DL (11.6-15.3); LYMPH % 15.2 % (9.0-44.0); LYMPHOCYTE # 1.5 TH/MM3 (1.0-4.8); MEAN CELL VOLUME 102.4 FL (80.0-100.0); MEAN CORPUSCULAR HEMOGLOBIN 34.7 PG (27.0-34.0); MEAN CORPUSCULAR HGB CONC 33.8 % (32.0-36.0); MEAN PLATELET VOLUME 8.2 FL (7.0-11.0); MONOCYTE # 0.7 TH/MM3 (0-0.9); NEUT % 76.8 % (16.0-70.0); PLATELET COUNT 202 TH/MM3 (150-450); RED BLOOD COUNT 3.64 MIL/MM3 (4.00-5.30); RED CELL DISTRIBUTION WIDTH 14.2 % (11.6-17.2); WHITE BLOOD COUNT 9.6 TH/MM3 (4.0-11.0)
[2017-12-28 06:26] LABS: CALCIUM 9.6 MG/DL (8.5-10.1); CREATININE 1.21 MG/DL (0.50-1.00)
[2017-12-28] MEDS: DOCUSATE SODIUM 50 MG/SENNA 8.6 MG TAB PO SCH ×2 (09:00→21:00)
[2017-12-28] MEDS: hydrALAZINE HCL 25 MG TAB PO SCH ×2 (09:02→21:45)
[2017-12-28] MEDS: NIFEdipine 90 MG SUSTAINED RELEASE TAB PO SCH (09:02)
[2017-12-28] MEDS: SODIUM CHLORIDE 0.9% FLUSH 10 ML FLUSH IV FLUSH SCH ×2 (09:02→21:46)
[2017-12-28] MEDS: LISINOPRIL 10 MG TAB PO SCH ×2 (09:02→21:45)
--- NOTE | 2017-12-28 10:28 | HHI.PR ---
Subjective Remarks Follow-up hypertension. Patient states that she feels the same as yesterday. Only complaint is mild lower abdominal cramping. She denies any vaginal bleeding. Denies nausea or vomiting. No chest pain, dyspnea. Objective Vitals Vital Signs Date Time Temp Pulse Resp B/P (MAP) Pulse Ox O2 Delivery O2 Flow Rate FiO2 12/28/17 08:59 172/84 (113) Automatic Cuff 12/28/17 08:10 77 18 206/93 (130) 99 12/28/17 08:07 72 12/28/17 04:03 97.9 74 16 185/85 (118) 94 12/28/17 04:00 61 12/28/17 00:00 63 12/27/17 23:24 98.0 64 16 170/78 (108) 95 12/27/17 20:18 98.7 67 16 166/78 (107) 97 12/27/17 20:00 69 12/27/17 18:39 67 18 199/109 (139) 95 12/27/17 17:30 98.9 66 18 201/95 (130) 98 12/27/17 16:00 62 12/27/17 15:00 162/74 (103) 12/27/17 12:33 78 12/27/17 12:02 98.9 73 18 183/84 (117) 93 I/O 12/27/17 12/27/17 12/27/17 12/28/17 12/28/17 12/28/17 07:00 15:00 23:00 07:00 15:00 23:00 Intake Total 1000 ml 1100 ml Balance 1000 ml 1100 ml Intake Oral 1000 ml 1100 ml # Voids 8 2 Result Diagram: 12/28/17 0532 12/28/17 0532 Objective Remarks General: Obese female in no acute distress. Heart: Regular rate and rhythm. No murmur. Lungs: Clear to auscultation bilaterally. No wheezes, rales, or rhonchi. Breathing is nonlabored. Abdomen: Soft, nontender, nondistended. Extremities: No lower extremity edema. Psych: Alert and oriented. Neuro: Normal speech. No focal deficits noted. Procedures None Urinary Catheter: No Vascular Central Line Catheter: No A/P Problem List: (1) Epistaxis ICD Code: R04.0 - Epistaxis Status: Acute (2) Uncontrolled hypertension ICD Code: I10 - Essential (primary) hypertension (3) Hyperglycemia ICD Code: R73.9 - Hyperglycemia, unspecified (4) Renal insufficiency ICD Code: N28.9 - Disorder of kidney and ureter, unspecified Assessment and Plan 1. Hypertensive urgency: Patient had only mild improvement in her blood pressure with clonidine, IV labetalol, nitroglycerin, metoprolol, and nifedipine in the ER. Continue Procardia XL 90 mg daily, lisinopril 10 mg twice daily. Continue clonidine as needed. Blood pressure has remained elevated. Add hydralazine. 2. Epistaxis: Secondary to above. Status post Afrin in the ER with resolution of epistaxis. No further episodes. 3. Acute kidney injury: Creatinine has improved. Encourage oral fluid hydration. Monitor labs. Likely prerenal secondary to dehydration versus secondary to hypertensive nephropathy. 4. Hyperglycemia: Hemoglobin A1c 5.6. 5. DVT prophylaxis: HAO Narayanan. Avoid chemical prophylaxis secondary to epistaxis. Discharge Planning Discharge home when blood pressure control is improved. Gino Castro MD Dec 28, 2017 10:28
[2017-12-29] VITALS: PULSE 72
[2017-12-29 04:00] VITALS: PULSE 65
[2017-12-29 04:06] VITALS: BP 147/68; PULSE 76; RESP 16; TEMP 98; O2SAT 94
[2017-12-29 07:23] VITALS: PULSE 70
[2017-12-29] MEDS ORDERED: LISI10TA3 PO (08:59)
[2017-12-29] MEDS ORDERED: HYDR-3799 PO (08:59)
[2017-12-29] MEDS ORDERED: NIFE90TA2 PO (08:59)
[2017-12-29] MEDS: DOCUSATE SODIUM 50 MG/SENNA 8.6 MG TAB PO SCH (09:00)
--- NOTE | 2017-12-29 09:01 | HHI.DS ---
Discharge Summary Admission Date Dec 25, 2017 at 03:18 Discharge Date: Dec 29, 2017 Admitting Diagnosis uncontrolled HTN; epistaxis (1) Epistaxis ICD Code: R04.0 - Epistaxis Status: Acute (2) Uncontrolled hypertension ICD Code: I10 - Essential (primary) hypertension (3) Hyperglycemia ICD Code: R73.9 - Hyperglycemia, unspecified (4) Renal insufficiency ICD Code: N28.9 - Disorder of kidney and ureter, unspecified Procedures None Brief History - From Admission This is a 57-year-old female with a PMH of HTN who presented to ER with complaints of epistaxis and elevated blood pressure. Per patient she was told several years ago at an Urgent Care that she had high blood pressure but was not started on any medication at that time. Today, states she drove her scooter to the gas station and had acute onset of epistaxis from right nostril. No headache, dizziness, chest pain or nausea/vomiting. Not on ASA or anticoagulation. On arrival, BP 258/125, HR 99, O2 sat 97% on RA, Afebrile. CBC essentially unremarkable. Creatinine 1.60, no previous labs for comparison. BS 144. INR 1.0. S/p multiple doses of antihypertensive medications in the ER w/ some improvement, however BP remains 170-180's systolic. Epistaxis has resolved. CBC/BMP: 12/28/17 0532 12/28/17 0532 Significant Findings Laboratory Tests Test 12/26/17 09:55 12/27/17 08:15 12/28/17 05:32 Creatinine 1.06 MG/DL (0.50-1.00) 1.16 MG/DL (0.50-1.00) 1.21 MG/DL (0.50-1.00) Estimat Glomerular Filtration Rate 53 ML/MIN (>89) 48 ML/MIN (>89) 46 ML/MIN (>89) Red Blood Count 3.64 MIL/MM3 (4.00-5.30) Mean Corpuscular Volume 102.4 FL (80.0-100.0) Mean Corpuscular Hemoglobin 34.7 PG (27.0-34.0) Neutrophils (%) (Auto) 76.8 % (16.0-70.0) PE at Discharge General: Obese female in no acute distress. Heart: Regular rate and rhythm. No murmur. Lungs: Clear to auscultation bilaterally. No wheezes, rales, or rhonchi. Breathing is nonlabored. Abdomen: Soft, nontender, nondistended. Extremities: No lower extremity edema. Psych: Alert and oriented. Neuro: Normal speech. No focal deficits noted. Pt update on day of discharge The patient states that she feels better today. Abdominal cramping has improved. No headache, dizziness, chest pain, dyspnea. Hospital Course The patient was admitted for management of uncontrolled hypertension and epistaxis. The epistaxis resolved following administration of Afrin in the ER. Blood pressure was very difficult to control and her blood pressure medications were adjusted throughout the hospitalization. She was noted on labs to have renal insufficiency, uncertain if acute or chronic. Her creatinine improved during the hospitalization, but did remain somewhat elevated. Eventually her blood pressures improved and she was felt to be stable for discharge home. She was advised to follow-up with a PCP as soon as possible for further management of hypertension. She was counseled regarding diet and weight loss. Pt Condition on Discharge: Stable Discharge Disposition: Discharge Home Discharge Time: > 30 minutes Discharge Instructions DIET: Follow Instructions for: Heart Healthy Diet Activities you can perform: Regular-No Restrictions Follow up Referrals: PCP Follow-up - 1 Week with [facility] New Medications: Hydralazine HCl (Hydralazine HCl) 25 Mg Tablet 25 MG PO Q12HR for Blood Pressure Management, #60 TAB 0 Refills Lisinopril (Lisinopril) 10 Mg Tab 10 MG PO Q12HR for Blood Pressure Management, #60 TAB 0 Refills Nifedipine (Nifedipine ER) 90 Mg Tab 90 MG PO DAILY for Blood Pressure Management, #30 TAB 0 Refills Gino Castro MD Dec 29, 2017 09:01
[2017-12-29 09:03] VITALS: BP 176/94; PULSE 79; RESP 18; TEMP 98.5; O2SAT 97
[2017-12-29] MEDS: NIFEdipine 90 MG SUSTAINED RELEASE TAB PO SCH (10:02)
[2017-12-29] MEDS: hydrALAZINE HCL 25 MG TAB PO SCH (10:02)
[2017-12-29] MEDS: LISINOPRIL 10 MG TAB PO SCH (10:02)
[2017-12-29] MEDS: SODIUM CHLORIDE 0.9% FLUSH 10 ML FLUSH IV FLUSH SCH (10:03)
== END 2017-12-29 12:12 | disposition home or self-care (01) ==
LOC: NEPC 19:07 → NEDA 12-25 03:18 → NEPGCP 12-25 05:14
PROVIDERS: ADMIT Family Medicine; ATTEND Family Medicine
DX: R04.0 Epistaxis (principal); I16.0 Hypertensive urgency; I10 Essential (primary) hypertension; R73.9 Hyperglycemia, unspecified; N28.9 Disorder of kidney and ureter, unspecified; R10.30 Lower abdominal pain, unspecified; F17.210 Nicotine dependence, cigarettes, uncomplicated; E86.0 Dehydration; N17.9 Acute kidney failure, unspecified
CPT/HCPCS: 80048; 80053; 83036; 85025; 85610; 85730; 93005; 96374; 96376; 99285; G0378